=== PATIENT | male | born 1965 | race Caucasian/White ===

== ENCOUNTER 2023-07-07 05:04 | Inpatient (IN) | payer OTHER ==
[2023-07-07] VITALS (16 sets, daily range): BP systolic 107–144; BP diastolic 63–83; TEMP 97.7–97.9; O2SAT 93–98
[2023-07-07] MEDS ORDERED: ANESTHESIA TRAY IN PYXIS 1 EA TRAY MC ONE (06:04)
[2023-07-07] MEDS ORDERED: BUPIVACAINE 0.5 % PF 150 MG/30 ML VIAL ONE (06:04)
[2023-07-07] MEDS ORDERED: POLYMYXIN B SULFATE 500,000 UNITS ONE (06:04)
[2023-07-07] MEDS ORDERED: MIDAZOLAM HCL 2 MG/2ML VIAL ONE (06:22)
[2023-07-07] MEDS ORDERED: FENTANYL PF 250MCG/5ML AMPUL ONE (06:22)
[2023-07-07] MEDS ORDERED: ROPIVACAINE HCL 0.5% 5 MG/ML 30ML VIAL ONE (06:22)
[2023-07-07] MEDS ORDERED: FAMOTIDINE/PF INJ 20 MG/2 ML VIAL IV ONE (06:23)
[2023-07-07] MEDS ORDERED: ROCURONIUM BROMIDE 50 MG/5 ML ONE (06:23)
[2023-07-07] MEDS ORDERED: TRANEXAMIC ACID 1,000 MG/10 ML VIAL ONE (06:41)
[2023-07-07] MEDS ORDERED: HYDROMORPHONE 1 MG/1 ML DISP.SYRIN IV PRN (07:00)
[2023-07-07] MEDS: TRANEXAMIC ACID 3,000 MG in SODIUM CHLORIDE IRRIG SOLUTION 70 ML IR ONE (07:00)
[2023-07-07] MEDS ORDERED: ACETAMINOPHEN ES 500 MG TABLET ONE (09:08)
[2023-07-07] MEDS ORDERED: ACETAMINOPHEN 325 MG TABLET PO PRN (10:00)
[2023-07-07] MEDS ORDERED: ONDANSETRON HCL/PF 4 MG/2 ML VIAL IVP PRN (10:00)
[2023-07-07] MEDS ORDERED: BISACODYL SUPP (10 MG) 10 MG/SUPP.RECT SUPP.RECT RC PRN (10:00)
[2023-07-07] MEDS ORDERED: SENNOSIDES 8.6 MG TABLET PO PRN (10:00)
[2023-07-07] MEDS ORDERED: DOCUSATE SODIUM 250 MG CAPSULE PO PRN (10:00)
[2023-07-07] MEDS: IV D5/0.45 NACL 1,000 ML IV PRN (10:16)
[2023-07-07] MEDS ORDERED: HYDR50TA4 PO (11:52)
[2023-07-07] MEDS ORDERED: ASPI-1420 PO (11:52)
[2023-07-07] MEDS ORDERED: LOSA100T31 PO (11:52)
[2023-07-07] MEDS ORDERED: CARV6.25 PO (11:52)
[2023-07-07] MEDS ORDERED: EMPA10TA PO (11:52)
[2023-07-07] MEDS ORDERED: AMLO10TA4 PO (11:52)
[2023-07-07 13:44] LABS: HEMOGLOBIN 14.3 g/dL (13.5-17.5)
[2023-07-07] MEDS: ANCEF 1 GM/50 ML D5W IV SCH (15:01)
[2023-07-07] MEDS ORDERED: CLONIDINE HCL 0.1 MG TABLET PO PRN (19:30)
[2023-07-07] MEDS ORDERED: MAG HYDROX/AL HYDROX/SIMETH 30 ML UDC PO PRN (19:30)
[2023-07-07] MEDS ORDERED: diphenhydrAMINE HCL 25 MG CAPSULE PO PRN (19:30)
[2023-07-07] MEDS ORDERED: MENTHOL/CETYLPYRD (CEPACOL) 1 LOZ LOZENGE PO PRN (19:30)
[2023-07-07] MEDS ORDERED: MAGNESIUM HYDROXIDE 30 ML UDC PO PRN (19:30)
[2023-07-07] MEDS: oxyCODONE IR immediate release 5 MG TABLET PO ONE (19:54)
[2023-07-07] MEDS: FAMOTIDINE (20 MG) 20 MG TABLET PO SCH (21:13)
[2023-07-08 06:01] VITALS: O2SAT 98
[2023-07-08 06:34] LABS: HEMOGLOBIN 12.3 g/dL (13.5-17.5)
[2023-07-08] MEDS: oxyCODONE IR immediate release 5 MG TABLET PO PRN ×2 (07:53→12:27)
[2023-07-08 08:35] VITALS: BP 124/76; TEMP 97.5; O2SAT 98
[2023-07-08] MEDS: ASPIRIN 325 MG TABLET PO SCH (08:43)
== END 2023-07-08 13:15 | disposition home health service (06) | DRG 470 ==
LOC: DS 05:04 → MED 05:05
PROC: 0SRD0J9 Replacement of Left Knee Joint with Synthetic Substitute, Cemented, Open Approach (ICD-10-PCS; principal; 2023-07-07)
DX: M17.12 Unilateral primary osteoarthritis, left knee (principal); I10 Essential (primary) hypertension; E11.9 Type 2 diabetes mellitus without complications; M19.90 Unspecified osteoarthritis, unspecified site; E66.9 Obesity, unspecified; Y99.0 Civilian activity done for income or pay; X58.XXXA Exposure to other specified factors, initial encounter; Z79.84 Long term (current) use of oral hypoglycemic drugs; Z82.49 Family history of ischemic heart disease and other diseases of the circulatory system; Z83.3 Family history of diabetes mellitus
CPT/HCPCS: 36415; 82962-TC; 85027-TC; 86850-TC; 87081-TC; 94799-TC; 97116-TC; 97530-TC; 97760-TC; A4217; A4223; A6253; C1713; C1776; G0378; J0690; J1100; J1885; J2250; J2405; J2704; J2765; J2795; J3010; J3490; J7030; J7060; L1830